=== PATIENT | female | born 1960 | race Caucasian/White ===

== ENCOUNTER 2018-01-07 13:29 | Inpatient (IN) | payer OTHER ==
[~2018-01-07] VITALS: Ht 162.6 cm; Wt 96.6 kg
[~2018-01-07 13:29] MED LIST: AMLODIPINE PO; AMOXICILLIN 50500 MG; ANXIETY PILL; EFFEXOR75 MG; EFFEXOR75 MG PO; EYE DROPS; KEFLEX500 MG PO; NAPROSYN500 MG PO; NOHOMEMEDICATIONS; PERCOCET 5-3251 EACH PO; PROVENTIL HFA6.7 G1 INH; TAMSULOSIN HCL0.4 MG PO; VISTARIL 25 MG25 M1; XANAX 0.25 MG0.25 MG PO; XANAX 0.5 MG0.5 M1 PO
[2018-01-07 13:36] VITALS: BP 154/81
[2018-01-07 14:25] LABS: ABSOLUTE EOSINOPHILS 0.1 thou/uL (0.0-0.7); ABSOLUTE LYMPHOCYTES 2.3 thou/uL (0.8-5.3); ABSOLUTE MONOCYTES 0.5 thou/uL (0.0-1.2); BASOPHILS 0.7 %; EOSINOPHILS 1.8 %; HEMATOCRIT 43.6 % (37.0-47.0); HEMOGLOBIN 14.6 gm/dL (12.0-15.0); LYMPHOCYTES 32.8 %; MCH 29.9 pg (26.0-34.0); MCHC 33.5 g/dL (28.0-37.0); MCV 89.2 fL (80.0-100.0); MONOCYTES 7.2 %; MPV 7.2 fl. (7.2-11.1); NUCLEATED RBCS 0 /100WBC; PLATELET COUNT* 281 thou/uL (150-400); POLYS 57.5 %; RBC 4.89 mil/uL (4.20-5.00); RDW-CV 14.3 % (10.5-14.5)
[2018-01-07 14:38] LABS: ANION GAP 5 mmol/L (7-16); BUN 14 mg/dL (7-18); CALCIUM 8.2 mg/dL (8.5-10.1); CHLORIDE 105 mmol/L (98-107); CO2 32 mmol/L (21-32); CREATININE 0.5 mg/dL (0.6-1.3); GLUCOSE 127 mg/dL (70-99); POTASSIUM 3.8 mmol/L (3.5-5.1); SODIUM 142 mmol/L (136-145)
[2018-01-07 14:40] LABS: APTT 24.7 Seconds (25.0-31.3); PROTIME 10.3 Seconds (9.20-11.50)
[2018-01-07 14:45] LABS: ALBUMIN 3.7 g/dL (3.4-5.0); ALKALINE PHOSPHATASE 76 U/L (46-116); SGOT 18 U/L (15-37); SGPT 24 U/L (30-65); TOTAL BILIRUBIN 0.5 mg/dL (<0.1-1.0); TOTAL PROTEIN 7.2 g/dL (6.4-8.2); TROPONIN-I LEVEL <0.06 ng/mL (<0.06)
[2018-01-07 15:33] LABS: URINE BILIRUBIN NEGATIVE (Negative); URINE BLOOD NEGATIVE (Negative); URINE CLARITY CLEAR; URINE COLOR YELLOW; URINE GLUCOSE-RANDOM NEGATIVE (Negative); URINE KETONES NEGATIVE (Negative); URINE LEUKOCYTES NEGATIVE (Negative); URINE NITRITE NEGATIVE (Negative); URINE PROTEIN TRACE (Negative); URINE SPECIFIC GRAVITY 1.025 (1.005-1.030); URINE UROBILINOGEN 0.2 E.U./dl (0.2-1.0)
[2018-01-07 15:59] VITALS: BP 127/70
[2018-01-07 16:29] VITALS: BP 109/88
[2018-01-07 16:30] VITALS: BP 109/88
[2018-01-07 20:00] VITALS: BP 111/68
[2018-01-07 22:14] LABS: ALBUMIN 3.2 g/dL (3.4-5.0); CALCIUM 8.6 mg/dL (8.5-10.1); CREATININE 0.6 mg/dL (0.6-1.3); POTASSIUM 3.9 mmol/L (3.5-5.1); TOTAL BILIRUBIN 0.3 mg/dL (<0.1-1.0); TOTAL PROTEIN 6.1 g/dL (6.4-8.2)
[2018-01-08] VITALS: BP 112/66
[2018-01-08 04:00] VITALS: BP 141/69
[2018-01-08 05:22] LABS: ABSOLUTE EOSINOPHILS 0.1 thou/uL (0.0-0.7); ABSOLUTE LYMPHOCYTES 2.6 thou/uL (0.8-5.3); ABSOLUTE MONOCYTES 0.4 thou/uL (0.0-1.2); ABSOLUTE NEUTROPHILS 2.8 thou/uL (1.6-8.1); BASOPHILS 0.6 %; EOSINOPHILS 2.4 %; HEMATOCRIT 40.9 % (37.0-47.0); HEMOGLOBIN 13.4 gm/dL (12.0-15.0); LYMPHOCYTES 43.7 %; MCH 29.6 pg (26.0-34.0); MCHC 32.7 g/dL (28.0-37.0); MCV 90.5 fL (80.0-100.0); MONOCYTES 6.8 %; MPV 7.5 fl. (7.2-11.1); NUCLEATED RBCS 0 /100WBC; PLATELET COUNT* 253 thou/uL (150-400); POLYS 46.5 %; RBC 4.52 mil/uL (4.20-5.00); RDW-CV 14.4 % (10.5-14.5)
[2018-01-08 05:39] LABS: CALCIUM 7.9 mg/dL (8.5-10.1); CREATININE 0.5 mg/dL (0.6-1.3); POTASSIUM 3.9 mmol/L (3.5-5.1)
[2018-01-08 05:42] LABS: CHOLESTEROL 187 mg/dL (<200); HDL CHOLESTEROL 59 mg/dL (>40); LDL CHOLESTEROL 112 mg/dL (<100); TC:HDL 3.2 Ratio (Not establshd); TRIGLYCERIDE 80 mg/dL (<150); VLDL 16 mg/dL (<40)
[2018-01-08 05:48] LABS: SERUM ASSESSMENT CLEAR
[2018-01-08 09:00] VITALS: BP 121/78
--- NOTE | 2018-01-08 10:46 | EKG ---
[place] [address] ELECTROCARDIOGRAM REPORT Name: RICHARD SEARSSARAN OMALLEY Room: [address] ADM IN [facility].#: [id number] Admission: 01/07/18 Attend Phys: Marc Sow MD Discharge: Date of : 62 Report #: [id number] THIS REPORT FOR: //name// [facility] ED Test Date: 2018-01-07 Test Time: 14:01:04 Pat Name: HAYDEN SEARS Department: Room: [facility] Gender: F [employer] Guide: : 1960 Requested By: Gloria Mendiola Order Number: [id number] MD: Jaya Dugan Measurements Intervals [place] Rate: 70 P: 22 LA: 168 QRS: 44 QRSD: 107 T: 45 QT: 391 QTc: 422 Interpretive Statements Sinus rhythm Borderline T abnormalities, anterior leads Compared to ECG 08/12/2016 01:02:30 no change Electronically Signed On 01-08-2018 10:46:41 CDT by Jaya Dugan [email or web address] <ELECTRONICALLY SIGNED> By: Jaya Dugan MD, [facility] 01/08/18 1046 140 140 Jaya Dugan MD, [facility] /EPI
[2018-01-08 12:22] VITALS: BP 147/65
--- NOTE | 2018-01-08 14:04 | 2DMMODE ---
[place] [address] 2 D/M-MODE ECHOCARDIOGRAM Name: RENUHAYDEN JULIOTEJAL Room: [address] IN [facility]#: [id number] Admission: 01/07/18 Attend Phys: Marc Sow, Discharge: Date of : 62 Date of Service: 01/08/18 1403 Report #: [id number] THIS REPORT FOR: //name// APPROVED REPORT Study performed: 01/08/2018 10:49:11 EXAM: Comprehensive 2D, Doppler, and color-flow Echocardiogram Patient Location: In-Patient Room #: 220 Status: routine BSA: 2.08 HR: 57 bpm BP: 141/69 mmHg Rhythm: NSR Other Information Study Quality: Good Indications CVA/TIA Echo Enhancing Agent Indication: Rule out Shunt Agent(s) / Amount(s) Used: Agitated Saline 10 cc 2D Dimensions IVSd: 9.69 (7-11mm) LVOT Diam: 21.15 (18-24mm) LVDd: 45.82 mm PWd: 10.63 (7-11mm) Ascending Ao: 31.83 (22-36mm) LVDs: 30.50 (25-40mm) Aortic Root: 31.13 mm Volumes Left Atrial Volume (Systole) LA ESV Index: 19.10 mL/m2 Aortic Valve AoV Peak Ethan.: 1.11 m/s AO Peak Gr.: 4.95 mmHg LVOT Max P.60 mmHg AO Mean Gr.: 2.88 mmHg LVOT Mean P.18 mmHg LVOT Max V: 0.81 m/s AO V2 VTI: 26.54 cm LVOT Mean V: 0.50 m/s JONES (VTI): 2.18 cm2 LVOT V1 VTI: 16.44 [place] [address] 2 D/M-MODE ECHOCARDIOGRAM Name: HAYDEN SEARS Room: [address] IN [facility]#: [id number] Admission: 01/07/18 Attend Phys: Marc Sow, Discharge: Date of : 62 Date of Service: 01/08/18 1403 Report #: [id number] Mitral Valve E/A Ratio: 1.16 MV Decel. Time: 190.41 ms MV E Max Ethan.: 0.80 m/s MV PHT: 55.22 ms MVA (PHT): 3.98 cm2 TDI E/Lateral E': 7.27 E/Medial E': 6.67 Medial E' Ethan.: 0.12 m/s Lateral E' Ethan.: 0.11 m/s Pulmonary Valve PV Peak Ethan.: 0.77 m/s PV Peak Gr.: 2.39 mmHg Left Ventricle The left ventricle is normal size. There is normal LV segmental wall motion. There is normal left ventricular wall thickness. Left ventricular systolic function is normal. The left ventricular ejection fraction is within the normal range. LVEF is 55-60%. The left ventricular diastolic function is normal. Right Ventricle The right ventricle is normal size. The right ventricular systolic function is normal. Atria The left atrium size is normal. Interatrial septum is intact without evidence of ASD or PFO. The right atrium size is normal. Aortic Valve The aortic valve is normal in structure. No aortic regurgitation is present. There is no aortic valvular stenosis. Mitral Valve The mitral valve is normal in structure. Trace mitral regurgitation. No evidence of mitral valve stenosis. Tricuspid Valve The tricuspid valve is normal in structure. Unable to assess PA pressure. Trace tricuspid regurgitation. Pulmonic Valve The pulmonary valve is normal in structure. There is no pulmonic [place] [address] 2 D/M-MODE ECHOCARDIOGRAM Name: HAYDEN SEARS LYSSA Room: [address] IN [facility]#: [id number] Admission: 01/07/18 Attend Phys: Marc oSw, Discharge: Date of : 62 Date of Service: 01/08/18 1403 Report #: [id number] Great Vessels The aortic root is normal in size. IVC is normal in size and collapses >50% with inspiration. Pericardium There is no pericardial effusion. <Conclusion> Left ventricular systolic function is normal. The left ventricular ejection fraction is within the normal range. <ELECTRONICALLY SIGNED> By: Jaya Dugan MD, FACC 01/08/18 1403 140 140 Jaya Dugan MD, FACC /INF
[2018-01-08 16:54] VITALS: BP 122/65
[2018-01-08 20:00] VITALS: BP 142/46
[2018-01-09] VITALS: BP 140/65
[2018-01-09 03:07] LABS: GLYCOHEMOGLOBIN (HGB A1C) 5.3 % (4.8-5.6)
[2018-01-09 04:00] VITALS: BP 100/52
[2018-01-09 08:00] VITALS: BP 121/66
[2018-01-09 11:18] VITALS: BP 121/66
--- NOTE | 2018-01-22 09:50 | EEG ---
[address] [address] EEG STUDY REPORT Name: HAYDEN SEARS Room: [address] IN ..#: [id number] Admission: 01/07/18 Attend Phys: Marc Sow MD Discharge: 01/09/18 Date of : 62 Report #: [id number] THIS REPORT FOR: //name// CC: Marc Raya [facility] DATE OF SERVICE: 01/08/2018 This patient is being evaluated for dizziness and an EEG was done to evaluate the possibility of seizures. EEG was done by placing the electrode by standard 10-20 system of electrode placement. Both referential and sequential montages were used for recording. Background activity in this patient's EEG is about 10 Hz and 40 microvolts. A lot of artifact is present since the patient did not cooperate. The patient went to sleep and that is associated with bilaterally symmetrical sleep spindle and vertex sharp waves. Photic stimulation is unremarkable. Throughout the record, no active epileptiform activity was noticed. IMPRESSION: This patient's EEG is masked by a lot of artifact as the patient did not cooperate. It does not appear to be showing any epileptiform activity. Thank you very much for this referral. <ELECTRONICALLY SIGNED> By: Shakeel Alcazar MD 01/22/18 0950 1713 [id number] Alcazar MD /abdias
--- NOTE | 2018-01-22 09:50 | CON ---
[address] [address] CONSULTATION Name: RENUHAYDENSARAN OMALLEY Room: [address] IN .R.#: [id number] Admission: 01/07/18 Attend Phys: Marc Sow MD Discharge: 01/09/18 Date of : 62 Report #: [id number] THIS REPORT FOR: //name// CC: Marc Raya Frank DATE OF SERVICE: 01/08/2018 HISTORY OF PRESENT ILLNESS: This is a 57-year-old female patient who was evaluated by me for any neurological etiology for the patient's dizziness, which started a few days ago spontaneously. She woke up with those symptoms. There was no proceeding trauma. There was no focal neurological deficit, which was noticed. Movement of the head does produce this dizziness. 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 She was told that the coils are MRI noncompatible. She does have a history of anxiety. She has a history of GERD. REVIEW OF SYSTEMS: Indicate that she has recovered enough from her aneurysm coiling that she was able to go back to work. She does have some memory issues, but they are not very pronounced. I carried out 14-point review of systems and it was otherwise unremarkable. She denies any new eye, cardiac, respiratory, GI, , musculoskeletal, constitutional, dermatological, hematological, psychiatric, throat, allergic symptom associated with present symptomatology. PAST MEDICAL HISTORY: Positive for aneurysm coiling. FAMILY HISTORY: Negative for early age stroke. SOCIAL HISTORY: She does have a history of smoking. PHYSICAL EXAMINATION: Indicates that she is alert, responsive, able to follow simple and complex commands. It looks like her speech, concentration, fund of knowledge and memory is at her baseline. Cranial nerve examination 2-12 looks unremarkable. Strength, sensation, reflexes and tone is symmetrical. There is no cerebellar sign. There is no meningeal sign. There is no papilledema. There is no carotid bruit. She is a well-developed individual who does not have any dysmorphic features of eyes, ears and face. Her vision and hearing looks adequate. Pulses are difficult to feel. She has no edema, cyanosis or jaundice. Cardiac examination is unremarkable. No respiratory difficulty or rhonchi was noticed on either side. Blood pressure is 141/69, respirations 17, pulse is 56, temperature is 97.5. She did have a CT scan of the head on admission, which [place] [address] CONSULTATION Name: HAYDEN SEARS Room: [address]#: [id number] Admission: 01/07/18 Attend Phys: Marc Sow MD Discharge: 01/09/18 Date of : 62 Report #: [id number] IMPRESSION: This patient's dizziness is most likely non-neurological etiology. ENT pathology will be on the top of the list, but other pathologies like hypertension, etc. can cause similar problems. However, neurological etiology needs to be excluded because this patient had a prior history of aneurysm, which was apparently in the posterior fossa and can cause similar problems. She is scheduled to have a CT angiogram of the head and neck. I discussed that procedure with her and discussed its potential complication. She wants to proceed with it. RECOMMENDATIONS: 1. We will look at the CT of the head and neck once it is done, which she is scheduled to have. 2. If that is unremarkable, then I think we should assume that her dizziness is most likely non-neurological and should concentrate on the workup and management of that. I did discuss with her that. She wants to follow that plan. Thank you very much for this referral. <ELECTRONICALLY SIGNED> By: Shakeel Alcazar MD 01/22/18 0950 1149 [id number] Alcazar MD /nt
== END 2018-01-09 15:17 | disposition home or self-care (01) | DRG 641 ==
LOC: M.ERS 13:29 → M.TBA-ER 15:17 → M.2W 15:17
PROVIDERS: Nurse Practitioner Family; ADMIT Internal Medicine
DX: E86.0 Dehydration (principal); K21.9 Gastro-esophageal reflux disease without esophagitis; J45.909 Unspecified asthma, uncomplicated; F41.9 Anxiety disorder, unspecified; F17.210 Nicotine dependence, cigarettes, uncomplicated; R91.1 Solitary pulmonary nodule; H83.09 Labyrinthitis, unspecified ear; Z79.899 Other long term (current) drug therapy; Z71.6 Tobacco abuse counseling